=== PATIENT | female | born 1995 | race Caucasian/White ===

== ENCOUNTER 2019-03-26 03:54 | Emergency (ER) | payer OTHER ==
[~2019-03-26] VITALS: Ht 165.1 cm; Wt 97.1 kg
[2019-03-26 04:00] VITALS: Ht 165.1 cm; Wt 97.1 kg
[2019-03-26 04:34] LABS: UA SPECIFIC GRAVITY 1.025 (1.005-1.035); microscopic required? YES; urine erythrocyte 3+ (NEGATIVE)
[2019-03-26 04:50] LABS: BASOPHIL % 0.5 % (0-2); PLATELET COUNT 271 x10^3mcL (130-400); RED CELL DISTRIBUTION WIDTH 13.4 % (11.5-14.5)
[2019-03-26 06:15] VITALS: BP 104/69
== END 2019-03-26 06:15 | disposition home or self-care (01) ==
LOC: ED 03:54
PROVIDERS: Emergency Medicine
DX: O20.0 Threatened abortion (principal); Z3A.09 9 weeks gestation of pregnancy; Z88.0 Allergy status to penicillin
CPT/HCPCS: 36415; Q0092

== ENCOUNTER 2019-03-27 02:04 | Emergency (ER) | payer OTHER ==
[~2019-03-27] VITALS: Ht 170.2 cm; Wt 94.8 kg
[2019-03-27 02:10] VITALS: Ht 170.2 cm; Wt 94.8 kg
[2019-03-27 03:36] VITALS: BP 105/55
== END 2019-03-27 03:36 | disposition home or self-care (01) ==
LOC: ED 02:04
DX: O20.0 Threatened abortion (principal); Z88.0 Allergy status to penicillin; Z98.890 Other specified postprocedural states

== ENCOUNTER 2020-03-25 19:45 | Emergency (ER) | payer OTHER, SELFPAY ==
[~2020-03-25] VITALS: Ht 165.1 cm; Wt 99.8 kg
[2020-03-25 19:46] VITALS: BP 125/79; Ht 165.1 cm; Wt 99.8 kg
== END 2020-03-25 21:27 | disposition home or self-care (01) ==
LOC: ED 19:45
DX: B34.9 Viral infection, unspecified (principal); Z20.828 Contact with and (suspected) exposure to other viral communicable diseases; Z88.0 Allergy status to penicillin; Z98.890 Other specified postprocedural states
CPT/HCPCS: U0003-CS